=== PATIENT | female | born 1970 | race Caucasian/White ===

== ENCOUNTER 2020-10-30 16:19 | Outpatient (REF) | payer MEDICAID, SELFPAY ==
[2020-10-30 17:54] LABS: MANUAL DIFF FLAG NO
[2020-10-30 18:02] LABS: Basophils Percent Auto 0.5 % (0-2); Eosinophils Absolute Auto 0.1 X10*3/uL (0.0-0.4); Eosinophils Percent Auto 1.4 % (0-4); Hematocrit 36.7 % (37-47); Hemoglobin 11.6 g/dl (12.0-16.0); Imm Gran Abs Auto 0.02 X10*3/uL (0.00-0.03); Imm Gran Pct Auto 0.3 % (0.0-0.4); Lymphocytes Absolute Auto 1.8 X10*3/uL (1.2-4.9); Lymphocytes Percent Auto 27.2 % (20-40); Mean Corpuscular HGB Conc 31.6 g/dl (31.0-35.0); Monocytes Absolute Auto 0.4 X10*3/uL (0.1-1.2); Monocytes Percent Auto 5.6 % (2-11); Neutrophils Absolute Auto 4.3 X10*3/uL (2.0-8.3); Platelet Count 150 X10*3/uL (160-400); White Blood Count 6.6 X10*3/uL (4.8-10.8)
[2020-10-30 18:03] LABS: Mean Corpuscular Volume 63.3 fL (80-98)
[2020-10-30 18:27] LABS: Alanine Aminotransferase 14 U/L (0-31); Albumin Level 4.7 g/dL (3.5-5.0); Alkaline Phosphatase 37 U/L (39-117); Anion Gap 14 (12-20); Aspartate Amino Transferase 19 U/L (5-31); Bilirubin Direct 0.4 mg/dL (0.0-0.5); Bilirubin Total 1.1 mg/dL (0.0-1.0); Blood Urea Nitrogen 11 mg/dL (9-16); Calcium 9.4 mg/dL (8.4-10.2); Carbon Dioxide 26 mmol/L (22-29); Chloride 105 mmol/L (96-108); Cholesterol 172 mg/dL; Estimated Glomerular Filt Rate > 60; Glucose Random 81 mg/dL (60-115); HDL Cholesterol 55 mg/dL; LDL Cholesterol Calculated 95 mg/dl; Potassium 3.8 mmol/l (3.3-5.1); Sodium 141 mmol/L (135-145); Total Protein 7.1 g/dL (6.5-8.0); Triglycerides 111 mg/dL
[2020-10-30 18:48] LABS: Thyroid Stimulating Hormone 1.04 uIU/mL (0.32-4.0); Vitamin D 25-OH Total 22.1 ng/mL (>30)
[2020-10-30 19:00] LABS: Folate 14.3 ng/mL (> or = 4.0); Vitamin B12 176 pg/mL (200-900)
[2020-10-30 19:01] LABS: Erythrocyte Sedimentation Rate 2 MM/HR (0-20)
[2020-10-31 08:46] LABS: HBS Num1 88.39 mIU/mL (0-7.99); ~HepC Num1 0.08 S/CO (0.00-0.79); ~Hepatitis A Antibody IgM Nonreactive (Nonreactive); ~Hepatitis B Surface Antibody REACTIVE (Nonreactive); ~Hepatitis C Antibody Nonreactive (Nonreactive)
[2020-10-31 09:37] LABS: HBsAGNum1 0.19 S/CO (0.00-0.99); Hepatitis B Surface Antigen Negative (Negative)
[2020-10-31 11:14] LABS: HBc Num1 10.66 S/CO (0.00-0.79)
[2020-10-31 11:15] LABS: HBc Num2 10.66 S/CO; HBc Num3 10.28 S/CO; Hepatitis B Core Antibody Reactive (Nonreactive)
[2020-11-01 13:13] LABS: Hepatitis B Core Antibody IgM NON-REACTIVE (NON-REACTIVE)
== END 2020-10-30 16:20 | disposition home or self-care (01) ==
LOC: HO.LAB 16:19
DX: Z00.00 Encounter for general adult medical examination without abnormal findings (principal); I10 Essential (primary) hypertension; K21.9 Gastro-esophageal reflux disease without esophagitis; R10.9 Unspecified abdominal pain
CPT/HCPCS: 36415; 80053; 80061; 80076; 82248; 82306; 82607; 82746; 83735; 84439; 84443; 85025; 85060; 85652; 86704; 86705; 86706; 86709; 86803; 87340

== ENCOUNTER 2020-11-07 08:31 | Outpatient (REF) | payer MEDICAID, SELFPAY ==
--- NOTE | 2020-11-07 | US_ITS ---
EXAMINATION: US ABDOMEN COMPLETE CLINICAL INFORMATION: Abdominal pain. COMPARISON: None TECHNIQUE: Real-time imaging of the abdominal viscera. FINDINGS: PANCREAS: Normal. ABDOMINAL AORTA: The proximal, mid, and distal segments are normal in caliber. INFERIOR VENA CAVA: Visualized portions are normal. LIVER: Normal. The liver is normal in size. The liver contour is normal. Parenchymal echogenicity is normal. No focal hepatic lesion. There is no intrahepatic biliary duct dilatation seen. GALLBLADDER: Normal. The gallbladder is physiologically distended without evidence of stones, sludge, polyps, wall thickening or pericholecystic fluid. COMMON BILE DUCT: Normal in caliber measuring 0.5 cm in diameter. RIGHT KIDNEY: There is mild pelvic fullness versus mild hydronephrosis. No renal calculi or focal parenchymal lesions. The kidney measures 10.9 cm in maximum dimension. LEFT KIDNEY: Normal. No hydronephrosis. No renal calculi or focal parenchymal lesions. The kidney measures 10.2 cm in maximum dimension. SPLEEN: The spleen is enlarged and measures 16.2 cm in maximum dimension. FREE FLUID: None. US/US abdomen complete IMPRESSION: Mild pelvic fullness versus mild hydronephrosis right kidney. Mild splenomegaly. Rest of the abdominal ultrasound is unremarkable.
== END 2020-11-07 08:32 | disposition home or self-care (01) ==
LOC: HO.HMGCX 08:31
DX: R10.84 Generalized abdominal pain (principal); I10 Essential (primary) hypertension; B19.10 Unspecified viral hepatitis B without hepatic coma
CPT/HCPCS: 76700